=== PATIENT | male | born 1990 | race Caucasian/White ===

== ENCOUNTER 2024-10-07 22:24 | Emergency (ER) | payer MEDICAID, SELFPAY ==
[2024-10-07 22:24] VITALS: BMI 22.8
--- NOTE | 2024-10-07 22:27 | EKG_ITS ---
[facility] Test Date: 2024-10-07 Pat Name: JOVITA GUILLEN Department: Room: - Gender: Male Training Facilitator: : 1990 Requested By: Kenney Armijo Order Number: [id number] Reading MD: Kenney Armijo Measurements Intervals [place] Rate: 90 P: 69 ND: 171 QRS: 54 QRSD: 87 T: 72 QT: 345 QTc: 424 Interpretive Statements SINUS RHYTHM Compared to ECG 06/24/2024 15:44:01 Sinus tachycardia no longer present Atrial abnormality no longer present /store/S0/[id number].pdf
[2024-10-07 22:54] VITALS: BP 135/77; PULSE 90; RESP 18; TEMP 37.2; O2SAT 99
--- NOTE | 2024-10-07 23:06 | XR_ITS ---
Examination: PA chest single view Technique: Upright PA chest single view Exam date and time: 10/07/2024 11:14 PM Indications: Chest pain shortness of breath today. Findings: Normal heart size Lungs are clear. The osseous structures are intact Impression: No active disease
--- NOTE | 2024-10-07 23:08 | PD.EDRME ---
Rapid Medical Screening Exam RME Arrival date/time: 10/07/24 22:24 34M with history of some type of rare cancer (in remission) presents to ED with 2 days of CP and SOB. No obvious URI symptoms, but does have some weakness. Family members have some similar symptoms. Chief Complaint: Chest Pain Time Seen by Provider: 10/08/24 00:38 Vital signs: Vital Signs Temperature 98.9 F 10/07/24 22:54 Pulse Rate 90 10/07/24 22:54 Respiratory Rate 18 10/07/24 22:54 Blood Pressure 135/77 H 10/07/24 22:54 Pulse Oximetry (%) 99 10/07/24 22:54 Oxygen Delivery Method Room Air 10/07/24 22:54
[2024-10-07 23:53] LABS: Basophils % (Auto) 1 % (0-2.5); Eosinophils # (Auto) 0.1 Thou/mm3 (0.0-0.5); Eosinophils % (Auto) 1 % (0-10); Hematocrit 43.2 % (41.0-53.0); Hemoglobin 14.8 g/dL (13.5-16.0); Immature Granulocytes % (Auto) 0 % (0-0); Immature Granulocytes Auto 0.01 Thou/mm3 (0.00-0.00); Lymphocytes # (Auto) 2.7 Thou/mm3 (1.0-4.8); Lymphocytes % (Auto) 37 % (10-50); Mean Corpuscular HGB Conc 34.3 g/dl (31.0-37.0); Mean Corpuscular Hemoglobin 29.9 pg (25.0-35.0); Mean Corpuscular Volume 87 fL (80-100); Monocytes # (Auto) 0.4 Thou/mm3 (0.0-0.8); Monocytes % (Auto) 6 % (0-12); Neutrophils # (Auto) 4.1 Thou/mm3 (1.8-7.7); Neutrophils % (Auto) 56 % (37-80); Nucleated Red Blood Cell % 0 /100 WBC (0); Platelet Count 302 Thou/mm3 (140-440); RDW Standard Deviation 40.3 fL (35.1-43.9); Red Blood Count 4.95 Miln/mm3 (4.50-5.90); White Blood Count 7.4 Thou/mm3 (3.8-10.6)
[2024-10-08 00:20] VITALS: BP 115/84; PULSE 70; RESP 16; O2SAT 99
[2024-10-08 00:22] LABS: Alanine Aminotransferase 30 U/L (10-49); Albumin, Serum 5.6 gm/dL (3.5-5.0); Albumin/Globulin Ratio 2.5 (1.2-2.2); Alkaline Phosphatase 127 U/L (46-116); Anion Gap 10 (7-16); Aspartate Amino Transferase 25 U/L (0-34); BUN/Creatinine Ratio 9 Ratio (12-20); Bilirubin,Total 0.4 mg/dL (0.3-1.2); Blood Urea Nitrogen 13 mg/dL (9-23); Calcium 10.7 mg/dL (8.3-10.6); Calcium (Corrected) 10.7 mg/dL (8.5-10.1); Carbon Dioxide 28.1 mMol/L (20.0-31.0); Chloride 102 mMol/L (98-107); Creatinine (Component) 1.4 mg/dL (0.6-1.3); Estimated Creatinine Clearance 72.5 mL/min (>60); Globulin 2.2 gm/dL (2.3-3.5); Glucose 95 mg/dL (74-106); Osmolality,Calculated 279 (275-295); Potassium 3.9 mMol/L (3.4-5.1); Sodium 140 mMol/L (136-145); Total Protein 7.8 gm/dL (5.7-8.2); Troponin I < 0.020 ng/mL (0.0-0.045); eGFR > 60 See Note
--- NOTE | 2024-10-08 00:35 | EDNOTE_ITS ---
ED Chest Pain RME/HPI General Chief Complaint: Chest Pain Stated Complaint: CHEST PAIN AND SOB SINCE YEST. Time Seen by Provider: 10/08/24 00:38 Arrival date/time: 10/07/24 22:24 Limitations: no limitations RME / HPI RME / HPI narrative: 10/07/24 22:24 34M with history of some type of rare cancer (in remission) presents to ED with 2 days of CP and SOB. No obvious URI symptoms, but does have some weakness. Family members have some similar symptoms. ----- Dr. Rivas's Main ED Evaluation: 34yo male with a history of spinal CA (in remission since 2017) presents to the ED for a chief complaint of chest tightness since yesterday. Patient states his discomfort has been constant up until ~0000 tonight. He states he was feeling clammy and hot yesterday. He notes feeling fatigued and sluggish today and was concerned for having COVID, so he came in for evaluation. He endorses having diarrhea 3 days ago, and right-sided back pain. He denies any decreased appetite, cough, N/V or any other associated symptoms. No known allergies. Patient states he hasn't followed up at the [facility] in [place] since he lost his insuarance. He states his last MRI was in 2022 and was normal. Patient notes he sees a recycling coordinator next month. Related Data Previous Rx's ?Medication ?Instructions ?Recorded acetaminophen 300 mg-codeine 30 mg 1 tab PO Q6H PRN pain #15 tabs 02/16/21 tablet ondansetron 4 mg disintegrating 4 mg PO Q6H PRN nausea and 02/16/21 tablet vomiting #10 tabs tamsulosin 0.4 mg capsule (Flomax) 0.4 mg PO QDAY #7 caps 02/16/21 nirmatrelvir 300 mg (150 mg See Rx Instructions PO .COMPLEX 05/20/24 x2)-ritonavir 100 mg tablet,dose #30 tabs pack (Paxlovid) Allergies Allergy/AdvReac Type Severity Reaction Status Date / Time No Known Allergies Allergy Verified 10/07/24 22:27 Review of Systems Review of Systems Systems Reviewed: All systems reviewed, normal except as documented Past Medical History Past Medical History NEUROLOGIC: Positive Neurological Disorders CARDIAC: Negative Cardiac Disorders or Congestive Heart Failure RESPIRATORY: Negative Chronic Obstructive Pulmonary Disease (COPD) or Asthma GENITOURINARY: Negative Renal Disease ENDOCRINE: Negative Diabetes Mellitus Type 1 or Diabetes Mellitus Type 2 HEMATOLOGIC: Negative Sickle Cell Disease OTHER HISTORY: Positive Cancer (Spine in 2017.) Surgical History SURGICAL: Positive Neurologic Surgery Social History SMOKING STATUS: Never smoker SUBSTANCE USE: marijuana ED Exam General Limitations: Present no limitations General appearance: Present alert and in no apparent distress Head Head exam: Present atraumatic Eye Eye exam: Present normal appearance, PERRL and EOMI ENT ENT exam: Present normal exam, normal oropharynx, mucous membranes moist and other (no trismus) Neck Neck exam: Present normal inspection, full ROM and trachea midline Chest Chest inspection: Present normal inspection and symmetric chest wall rise Respiratory Respiratory exam: Present normal lung sounds bilaterally Cardiovascular Cardiovascular exam: Present regular rate, normal rhythm and normal heart sounds Abdominal Exam Abdominal exam: Present soft and normal bowel sounds Extremities Exam Extremities exam: Present normal inspection and full ROM Back Exam Back exam: Present normal inspection and full ROM Neurological Exam Neurological exam: Present alert, oriented X3 and CN II-XII intact Psychiatric Psychiatric exam: Present normal affect and normal mood Skin Skin exam: Present warm, dry, intact and normal color Course Course Course Narrative: CXR is ordered for determining the etiology of chest pain. 0052: Discussed plan with the patient. Patient is agreeable to get a repeat troponin. Quality Measures none Orders Category Date Time Status Bedside COVID-19 Antigen Test NOW Care 10/07/24 23:06 Completed Bedside Influenza A&B Antigen Test NOW Care 10/07/24 23:07 Completed EKG (ED ONLY) *Do not use* NOW Care 10/07/24 22:27 Completed EKG (ED Only) Stat Exams 10/07/24 22:27 Draft XR chest 1V portable Stat Exams 10/07/24 23:06 Completed CBC Stat Lab 10/07/24 23:17 Completed Comprehensive Metabolic Panel Stat Lab 10/07/24 23:17 Completed Troponin I Stat Lab 10/07/24 23:17 Completed Troponin I Stat Lab 10/08/24 01:18 Completed Vital Signs Vital signs: Vital Signs Temperature 98.9 F 10/07/24 22:54 Pulse Rate 90 10/07/24 22:54 Respiratory Rate 18 10/07/24 22:54 Blood Pressure 135/77 H 10/07/24 22:54 Pulse Oximetry (%) 99 10/07/24 22:54 Oxygen Delivery Method Room Air 10/07/24 22:54 Pulse ox is 99% on room air, which is normal according to my interpretation. Chest Pain Patient data External records reviewed:: [facility] previous records (Per chart review, patient was seen here on 07/17/24 for a left kidney stone.) Clinical information provided by:: patient Social determinants that could affect healthcare access:: none Patient has the following chronic illnesses:: spinal CA (2016), last chemotherapy tx in 2017 How is presenting disease/condition affected by chronic disease/condition?: uneffected by Evaluation data The following diagnostics were reviewed and interpreted by me:: lab results, radiology exam(s) and EKG tracing(s) Lab and/or radiology exams considered but not ordered:: none Interpretation Summary: CBC is normal, Creatinine is slightly elevated at 1.4, Initial Troponin is normal, Repeat Troponin is normal, Bedside COVID and Influenza are negative, according to my interpretation. CXR is negative for any CHF, pleural effusions, pneumothorax, and cardiomegaly, according to my interpretation. EKG done at 2244, NSR, rate of 90, QTc: 424, normal intervals, normal axis, no ST elevations or depression, no STEMI, according to my interpretation. ---- I have personally reviewed the radiology data and agree with the radiologist's interpretation below: [facility] Report Signed Patient: JOVITA GUILLEN Record#: [id number] Birthdate: 1990 Age/Sex: 34 / M Location: [facility] Attending Dr: Ordering Physician: Kenney Armijo PA-C Date of Service: 10/07/24 Procedure(s): XR chest 1V portable Accession Number(s): [id number] cc: Andrea Morris MD; Kenney Armijo PA-C~ Examination: PA chest single view Technique: Upright PA chest single view Exam date and time: 10/07/2024 11:14 PM Indications: Chest pain shortness of breath today. Findings: Normal heart size Lungs are clear. The osseous structures are intact Impression: No active disease Dictated By: Andrea Morris MD Signed By: <Electronically signed by Andrea Morris MD in [place]> 10/07/24 1553 Medications / Prescriptions Medications or Prescriptions considered but not ordered:: none Medication administrations:: see above, if any Consultations Consultation(s) initiated? (list below): No Diagnosis Chest Pain Differential Diagnosis: other (atypical presentation of gallbladder stone, anxiety, PE, CA, GERD) Most likely diagnosis given after review of the tests above:: see below Admission Indicated Admission indicated?: not indicated Explain why admission is indicated or not indicated:: Initial and repeat troponins are normal. Patient is stable to be discharged home. Admission Request Was there a request for admission?: No Disposition Plan Disposition Plan: Discharge Discharge Attestation Discharge Attestation: The patient and all family members were given an opportunity to ask questions and understood the discharge instructions. Discharge instructions specifically effects, indications for sooner follow up or return to the emergency department, and the expected course of current diagnosis. Patient condition: Stable Discharge Plan Plan Patient Disposition: HOME (Self Care) Patient condition on transfer: Stable Prescriptions/Referrals Prescriptions/Med Rec: No Action tamsulosin [Flomax] 0.4 mg capsule 0.4 mg PO QDAY Qty: 7 0RF acetaminophen-codeine 300-30 mg tablet 1 tab PO Q6H PRN (Reason: pain) Qty: 15 0RF ondansetron 4 mg tablet,disintegrating 4 mg PO Q6H PRN (Reason: nausea and vomiting) Qty: 10 0RF Paxlovid 300 mg (150 mg x 2)-100 mg tablets,dose pack See Rx Instructions .ROUTE .COMPLEX Qty: 30 0RF Rx Instructions: take TWO 150 mg tablets of nirmatrelvir with ONE 100 mg tablet of ritonavir twice daily for 5 days Problem List Clinical Impression: Palpitations Patient/Caregiver Discharge Instructions Education Materials: ED Palpitations Additional Instructions: Please follow-up with your recycling coordinator and your primary care as directed. Return to emergency department worsening symptoms, or any concerns. Print Language: Colombian Stand Alone Forms: Jeri Award Info., Patient Portal Info Letter
[2024-10-08 01:47] LABS: Troponin I < 0.020 ng/mL (0.0-0.045)
[2024-10-08 01:56] VITALS: BP 115/79; PULSE 73; RESP 16; TEMP 36.7; O2SAT 99
[2024-10-08 02:22] VITALS: PULSE 93; RESP 20; O2SAT 100
== END 2024-10-08 02:23 | disposition home or self-care (01) ==
LOC: SERX 10-08 02:00
PROVIDERS: Physician Assistant; Emergency Provider Emergency Medicine; PCP Family Medicine
DX: R00.2 Palpitations (principal); R07.9 Chest pain, unspecified
CPT/HCPCS: 36415; 71045; 80053; 84484; 85025; 87400; 87811; 93005; 99283

== ENCOUNTER 2024-10-15 17:53 | Emergency (ER) | payer MEDICAID, SELFPAY ==
[2024-10-15 17:53] VITALS: BMI 22.8
[2024-10-15 18:11] VITALS: BP 136/86; PULSE 88; RESP 19; TEMP 36.9; O2SAT 98
--- NOTE | 2024-10-15 18:21 | XR_ITS ---
Examination: Abdomen sonogram, Limited Date and time of exam: October 15, 20242026 hrs. Indications: Onset right upper abdominal pain today Technique: Real-time harris scale transabdominal sonographic images of the upper abdomen obtained. Findings: 16 mm gallstone Normal gallbladder wall Normal common bile duct Pancreatic head 3.3 cm Liver 11.9 cm fatty infiltration Normal hepatopedal portal venous flow Patent IVC Impression: Cholelithiasis, negative for cholecystitis
--- NOTE | 2024-10-15 18:22 | PD.EDRME ---
Rapid Medical Screening Exam E Arrival date/time: 10/15/24 17:53 34-year-old male past medical history of gallstones with emergency department complaining of right upper quadrant abdominal pain that started yesterday. Chief Complaint: Abdominal Pain Time Seen by Provider: 10/15/24 18:05 Vital signs: Vital Signs Temperature 98.5 F 10/15/24 18:11 Pulse Rate 88 10/15/24 18:11 Respiratory Rate 19 10/15/24 18:11 Blood Pressure 136/86 H 10/15/24 18:11 Pulse Oximetry (%) 98 10/15/24 18:11 Oxygen Delivery Method Room Air 10/15/24 18:11 Vital signs reviewed by provider: Yes
[2024-10-15] MEDS: KETOROLAC INJ 60 MG/2 ML VIAL 30 MG IM (18:29)
[2024-10-15 18:57] LABS: Basophils # (Auto) 0.1 Thou/mm3 (0.0-0.2); Basophils % (Auto) 1 % (0-2.5); Eosinophils # (Auto) 0.1 Thou/mm3 (0.0-0.5); Eosinophils % (Auto) 1 % (0-10); Hematocrit 44.4 % (41.0-53.0); Hemoglobin 15.5 g/dL (13.5-16.0); Immature Granulocytes % (Auto) 0 % (0-0); Immature Granulocytes Auto 0.02 Thou/mm3 (0.00-0.00); Lymphocytes # (Auto) 2.7 Thou/mm3 (1.0-4.8); Lymphocytes % (Auto) 30 % (10-50); Mean Corpuscular HGB Conc 34.9 g/dl (31.0-37.0); Mean Corpuscular Hemoglobin 30.3 pg (25.0-35.0); Mean Corpuscular Volume 87 fL (80-100); Monocytes # (Auto) 0.6 Thou/mm3 (0.0-0.8); Monocytes % (Auto) 6 % (0-12); Neutrophils # (Auto) 5.5 Thou/mm3 (1.8-7.7); Neutrophils % (Auto) 61 % (37-80); Nucleated Red Blood Cell % 0 /100 WBC (0); Platelet Count 300 Thou/mm3 (140-440); Red Blood Count 5.12 Miln/mm3 (4.50-5.90)
[2024-10-15 19:23] LABS: Alanine Aminotransferase 43 U/L (10-49); Albumin, Serum 5.9 gm/dL (3.5-5.0); Albumin/Globulin Ratio 2.5 (1.2-2.2); Alkaline Phosphatase 121 U/L (46-116); Anion Gap 11 (7-16); Aspartate Amino Transferase 27 U/L (0-34); BUN/Creatinine Ratio 14 Ratio (12-20); Bilirubin,Total 0.6 mg/dL (0.3-1.2); Blood Urea Nitrogen 19 mg/dL (9-23); Calcium 11.2 mg/dL (8.3-10.6); Calcium (Corrected) 11.2 mg/dL (8.5-10.1); Carbon Dioxide 27.5 mMol/L (20.0-31.0); Chloride 100 mMol/L (98-107); Creatinine (Component) 1.4 mg/dL (0.6-1.3); Estimated Creatinine Clearance 72.5 mL/min (>60); Globulin 2.4 gm/dL (2.3-3.5); Glucose 98 mg/dL (74-106); Lipase 39 U/L (12-53); Osmolality,Calculated 277 (275-295); Potassium 4.2 mMol/L (3.4-5.1); Sodium 138 mMol/L (136-145); Total Protein 8.3 gm/dL (5.7-8.2); eGFR > 60 See Note
--- NOTE | 2024-10-15 21:20 | EDNOTE_ITS ---
<Statement entered by Shannan Krishna MD - 10/26/24 17:37> As co-signing physician, I was present and available for consult prn. I concur with the plan and care as documented by the midlevel provider. ED Abdominal Pain RME/HPI General Chief Complaint: Abdominal Pain Stated complaint: RIGHT SIDE ABD PAIN TODAY, HX GALLSTONES Time seen by provider: 10/15/24 18:05 Arrival date/time: 10/15/24 17:53 34-year-old male past medical history of gallstones with emergency department complaining of right upper quadrant abdominal pain that started yesterday. Patient denies any fever, chills, nausea vomiting, diarrhea, or any other associated symptom. Source: patient Mode of arrival: ambulatory Limitations: no limitations RME / HPI RME / HPI narrative: 10/15/24 17:53 34-year-old male past medical history of gallstones with emergency department complaining of right upper quadrant abdominal pain that started yesterday. Related Data Previous Rx's ?Medication ?Instructions ?Recorded acetaminophen 300 mg-codeine 30 mg 1 tab PO Q6H PRN pain #15 tabs 02/16/21 tablet ondansetron 4 mg disintegrating 4 mg PO Q6H PRN nausea and 02/16/21 tablet vomiting #10 tabs tamsulosin 0.4 mg capsule (Flomax) 0.4 mg PO QDAY #7 caps 02/16/21 nirmatrelvir 300 mg (150 mg See Rx Instructions PO .COMPLEX 05/20/24 x2)-ritonavir 100 mg tablet,dose #30 tabs pack (Paxlovid) ibuprofen 600 mg tablet 600 mg PO Q8H PRN pain #20 tabs 10/15/24 Allergies Allergy/AdvReac Type Severity Reaction Status Date / Time No Known Allergies Allergy Verified 10/15/24 17:55 Review of Systems Review of Systems Systems Reviewed: All systems reviewed, normal except as documented Constitutional Constitutional: Reports system reviewed and no additional complaints, except as documented, Denies body ache(s), Denies chills and Denies fever(s) Eyes Eyes: Reports system reviewed and no additional complaints, except as documented and Denies change in vision ENT Ears, Nose, Mouth, and Throat: Reports system reviewed and no additional co mplaints, except as documented, Denies disequilibrium, Denies dizziness, Denies sore throat and Denies vertigo Cardiovascular Cardiovascular: Reports system reviewed and no additional complaints, except as documented, Denies chest pain and Denies dyspnea Respiratory Respiratory: Reports system reviewed and no additional complaints, except as documented, Denies chest congestion, Denies cough and Denies dyspnea Gastrointestinal Gastrointestinal: Reports system reviewed and no additional complaints, except as documented, Reports abdominal pain, Denies nausea and Denies vomiting Musculoskeletal Musculoskeletal: Reports system reviewed and no additional complaints, except as documented, Denies abnormal gait and Denies arthralgias Integumentary/Breasts Skin/Breast: Reports system reviewed and no additional complaints, except as documented, Denies erythema, Denies rash and Denies wounds Neurologic Neurologic: Reports system reviewed and no additional complaints, except as documented, Denies abnormal gait, Denies disequilibrium, Denies dizziness and Denies vertigo Past Medical History Past Medical History NEUROLOGIC: Positive Neurological Disorders CARDIAC: Negative Cardiac Disorders or Congestive Heart Failure RESPIRATORY: Negative Chronic Obstructive Pulmonary Disease (COPD) or Asthma GENITOURINARY: Negative Renal Disease ENDOCRINE: Negative Diabetes Mellitus Type 1 or Diabetes Mellitus Type 2 HEMATOLOGIC: Negative Sickle Cell Disease OTHER HISTORY: Positive Cancer (Spine in 2017.) Surgical History SURGICAL: Positive Neurologic Surgery Social History SMOKING STATUS: Never smoker SUBSTANCE USE: marijuana ED Exam General Limitations: Present no limitations General appearance: Present alert and in no apparent distress Head Head exam: Present atraumatic Eye Eye exam: Present normal appearance, PERRL and EOMI ENT ENT exam: Present normal exam, normal oropharynx and mucous membranes moist Neck Neck exam: Present normal inspection, full ROM and trachea midline Chest Chest inspection: Present normal inspection and symmetric chest wall rise Respiratory Respiratory exam: Present normal lung sounds bilaterally Cardiovascular Cardiovascular exam: Present regular rate, normal rhythm and normal heart sounds Abdominal Exam Abdominal exam: Present soft and normal bowel sounds; Absent tenderness, guarding, rebound or Moreno's sign Extremities Exam Extremities exam: Present normal inspection and full ROM Back Exam Back exam: Present normal inspection and full ROM Neurological Exam Neurological exam: Present alert, oriented X3 and CN II-XII intact Psychiatric Psychiatric exam: Present normal affect and normal mood Skin Skin exam: Present warm, dry, intact and normal color Course Quality Measures none Orders Category Date Time Status US gall bladder Stat Exams 10/15/24 18:21 Completed CBC Stat Lab 10/15/24 18:44 Completed CMP [Comprehensive Metabolic Panel] Stat Lab 10/15/24 18:44 Completed Lipase Stat Lab 10/15/24 18:44 Completed Ketorolac Inj [Toradol Inj] Med 10/15/24 18:21 Discontinued 30 mg IM X1 ONE Vital Signs Vital signs: Vital Signs Temperature 98.5 F 10/15/24 18:11 Pulse Rate 88 10/15/24 18:11 Respiratory Rate 19 10/15/24 18:11 Blood Pressure 136/86 H 10/15/24 18:11 Pulse Oximetry (%) 98 10/15/24 18:11 Oxygen Delivery Method Room Air 10/15/24 18:11 98% room air within normal limits Abdominal Pain MDM MDM Narrative MDM Narrative:: 34-year-old male past medical history of gallstones with emergency department complaining of right upper quadrant abdominal pain that started yesterday. Patient denies any fever, chills, nausea vomiting, diarrhea, or any other associated symptom. CBC was unremarkable for any leukocytosis. CMP was unremarkable with normal AST, ALT, and total bili. Ultrasound gallbladder findings gallstones but negative for cholecystitis. Patient appears nontoxic and is hemodynamically stable. Patient discharged ducted to follow-up with primary care provider and request referral to general surgeon if symptoms persist. Instructed to return to emergency department for any worsening symptoms or as needed. Patient data External records reviewed:: [facility] previous records Clinical information provided by:: patient Social determinants that could affect healthcare access:: none Patient has the following chronic illnesses:: See chart How is presenting disease/condition affected by chronic disease/condition?: uneffected by Evaluation data The following diagnostics were reviewed and interpreted by me:: lab results and radiology exam(s) Lab and/or radiology exams considered but not ordered:: Ordered Interpretation Summary: Interpreted by me Medications / Prescriptions Medications or Prescriptions considered but not ordered:: Ordered Medication administrations:: Medication Administration History Discontinued Medications Ketorolac Tromethamine (Ketorolac Inj 60 Mg/2 Ml Vial) 30 mg IM X1 ONE Stop: 10/15/24 18:22 Last Admin: 10/15/24 18:29 Dose: 30 mg Documented By: Given Consultations Consultation(s) initiated? (list below): No Diagnosis Differential diagnosis abdominal pain: abdominal pain, acute appendicitis, calculus of kidney, constipation, diverticulitis, endometriosis, pancreatitis and small bowel obstruction Most likely diagnosis given after review of the tests above:: Gallstones Admission Indicated Admission indicated?: not indicated Admission Request Was there a request for admission?: No Disposition Plan Disposition Plan: Discharge Discharge Attestation Discharge Attestation: The patient and all family members were given an opportunity to ask questions and understood the discharge instructions. Discharge instructions specifically effects, indications for sooner follow up or return to the emergency department, and the expected course of current diagnosis. Patient condition: Stable Discharge Plan Plan Patient Disposition: HOME (Self Care) Disposition Comment: Stable Prescriptions/Referrals Prescriptions/Med Rec: New ibuprofen 600 mg tablet 600 mg PO Q8H PRN (Reason: pain) Qty: 20 0RF No Action tamsulosin [Flomax] 0.4 mg capsule 0.4 mg PO QDAY Qty: 7 0RF acetaminophen-codeine 300-30 mg tablet 1 tab PO Q6H PRN (Reason: pain) Qty: 15 0RF ondansetron 4 mg tablet,disintegrating 4 mg PO Q6H PRN (Reason: nausea and vomiting) Qty: 10 0RF Paxlovid 300 mg (150 mg x 2)-100 mg tablets,dose pack See Rx Instructions .ROUTE .COMPLEX Qty: 30 0RF Rx Instructions: take TWO 150 mg tablets of nirmatrelvir with ONE 100 mg tablet of ritonavir twice daily for 5 days Referrals: Edgar Farmer MD [Primary Care Provider] - In 1 week Problem List Clinical Impression: Gallstones Patient/Caregiver Discharge Instructions Discharge Activity: activity as tolerated Education Materials: ED Gallstones with Biliary Colic Additional Instructions: Take ibuprofen as needed for pain. Follow-up with primary care provider and request referral to general surgeon if symptoms persist. Return to emergency department for any worsening symptoms or as needed. Print Language: [place] Citizen Stand Alone Forms: Jeri Award Info., Patient Portal Info Letter PA/TSEFFANY Supervising Physician PA/STEFFANY Supervising Physician: Dr. Krishna
== END 2024-10-15 21:45 | disposition home or self-care (01) ==
PROVIDERS: Emergency Provider Emergency Medicine; PCP Family Medicine
DX: K80.20 Calculus of gallbladder without cholecystitis without obstruction (principal)
CPT/HCPCS: 36415; 76705; 80053; 81001; 83690; 85025; 96372; 99284; J1885

== ENCOUNTER 2024-10-19 10:17 | Emergency (ER) | payer MEDICAID, SELFPAY ==
[2024-10-19 10:41] VITALS: BP 137/90; PULSE 120; RESP 18; TEMP 36.9; O2SAT 99; BMI 22.1
--- NOTE | 2024-10-19 10:52 | XR_ITS ---
Examination: Abdomen sonogram, Limited Date and time of exam: October 19, 2024 1131 hours INDICATIONS: Epigastric pain right upper abdominal pain beginning 4 days ago Technique: Real-time harris scale transabdominal sonographic images of the upper abdomen obtained. Findings: 21 mm gallstone Gallbladder wall 0.3 cm no edema Common bile duct 0.2 cm Pancreatic head 2.6 cm Liver 12.3 cm fatty infiltration with areas of focal fatty sparing Normal hepatopedal portal venous flow Patent IVC IMPRESSION: Cholelithiasis, negative for cholecystitis
--- NOTE | 2024-10-19 10:54 | PD.EDRME ---
Rapid Medical Screening Exam RME Arrival date/time: 10/19/24 10:17 34-year-old male with recent diagnosis of gallstones presents to the emergency department complains of abdominal pain which has worsened Chief Complaint: Abdominal Pain Time Seen by Provider: 10/19/24 10:39 Vital signs: Vital Signs Temperature 98.4 F 10/19/24 10:41 Pulse Rate 120 H 10/19/24 10:41 Respiratory Rate 18 10/19/24 10:41 Blood Pressure 137/90 H 10/19/24 10:41 Pulse Oximetry (%) 99 10/19/24 10:41 Oxygen Delivery Method Room Air 10/19/24 10:41
[2024-10-19 11:13] LABS: Basophils # (Auto) 0.1 Thou/mm3 (0.0-0.2); Basophils % (Auto) 1 % (0-2.5); Eosinophils # (Auto) 0.1 Thou/mm3 (0.0-0.5); Eosinophils % (Auto) 1 % (0-10); Hematocrit 41.3 % (41.0-53.0); Hemoglobin 14.5 g/dL (13.5-16.0); Immature Granulocytes % (Auto) 0 % (0-0); Immature Granulocytes Auto 0.02 Thou/mm3 (0.00-0.00); Lymphocytes # (Auto) 1.7 Thou/mm3 (1.0-4.8); Lymphocytes % (Auto) 24 % (10-50); Mean Corpuscular HGB Conc 35.1 g/dl (31.0-37.0); Mean Corpuscular Hemoglobin 30.1 pg (25.0-35.0); Mean Corpuscular Volume 86 fL (80-100); Monocytes # (Auto) 0.4 Thou/mm3 (0.0-0.8); Monocytes % (Auto) 5 % (0-12); Neutrophils # (Auto) 4.8 Thou/mm3 (1.8-7.7); Neutrophils % (Auto) 69 % (37-80); Nucleated Red Blood Cell % 0 /100 WBC (0); Platelet Count 257 Thou/mm3 (140-440); RDW Standard Deviation 39.8 fL (35.1-43.9); Red Blood Count 4.81 Miln/mm3 (4.50-5.90); White Blood Count 6.9 Thou/mm3 (3.8-10.6)
[2024-10-19 11:31] LABS: Alanine Aminotransferase 24 U/L (10-49); Albumin, Serum 5.4 gm/dL (3.5-5.0); Albumin/Globulin Ratio 2.3 (1.2-2.2); Alkaline Phosphatase 98 U/L (46-116); Anion Gap 8 (7-16); Aspartate Amino Transferase 14 U/L (0-34); BUN/Creatinine Ratio 10 Ratio (12-20); Bilirubin,Total 0.6 mg/dL (0.3-1.2); Blood Urea Nitrogen 12 mg/dL (9-23); Calcium 10.6 mg/dL (8.3-10.6); Calcium (Corrected) 10.6 mg/dL (8.5-10.1); Carbon Dioxide 26.7 mMol/L (20.0-31.0); Chloride 102 mMol/L (98-107); Creatinine (Component) 1.2 mg/dL (0.6-1.3); Estimated Creatinine Clearance 81.9 mL/min (>60); Globulin 2.3 gm/dL (2.3-3.5); Glucose 106 mg/dL (74-106); Lipase 38 U/L (12-53); Osmolality,Calculated 273 (275-295); Sodium 137 mMol/L (136-145); Total Protein 7.7 gm/dL (5.7-8.2); eGFR > 60 See Note
[2024-10-19 12:11] LABS: Collection Type, Urine Clean Catch; Squamous Epithelial Cell,Urine 0 /hpf (0-5)
[2024-10-19 12:15] LABS: Bilirubin,Urine Negative (Negative); Blood,Urine Negative (Negative); Clarity,Urine Clear (Clear/Hazy); Color,Urine Lt-Yellow (Lt Yel-Yel); Culture Indicated,Urine Not Indicated; Glucose, Urine Negative (Negative); Ketones,Urine 1+ (Negative); Leukocyte Esterase,Urine Negative (Negative); Nitrite,Urine Negative (Negative); PH,Urine 6.5 (5.0-7.0); Protein,Urine Trace (Neg - Trace); RBC,Urine 1 /hpf (0-3); Specific Gravity,Urine 1.018 (1.001-1.035); Urobilinogen,Urine Negative mg/dL (0.0-1.0); WBC,Urine 3 /hpf (0-5)
[2024-10-19 12:32] LABS: Amphetamine/Methamp Scrn,U Negative (Negative); Barbiturate Screen,Urine Negative (Negative); Benzodiazepines Screen,Urine Negative (Negative); Benzoylecgonine Screen, Ur Negative (Negative); Fentanyl Screen,Urine Negative (Negative); Opiate Screen,Urine Negative (Negative); THC Screen,Urine Positive (Negative)
[2024-10-19 14:07] VITALS: BP 127/85; PULSE 97; RESP 17; TEMP 37; O2SAT 97
--- NOTE | 2024-10-19 14:51 | PD.EDADULT ---
ED General RME/HPI General Chief complaint: Abdominal Pain Stated complaint: SEEN SAT, GALL BLADDER PAIN Time Seen by Provider: 10/19/24 10:39 Arrival date/time: 10/19/24 10:17 CC: Right upper quadrant abdominal pain. HPI ongoing for the past week. Was seen yesterday by Dr. Vu for the same complaint. Patient has a history of brain cancer with chemotherapy that is currently in remission. Patient states this morning he was nauseated with right upper quadrant abdominal pain which has since resolved. Patient denies fever chills shortness of breath or difficulty breathing. RME / HPI RME / HPI narrative: 10/19/24 10:17 34-year-old male with recent diagnosis of gallstones presents to the emergency department complains of abdominal pain which has worsened Related Data Previous Rx's ?Medication ?Instructions ?Recorded acetaminophen 300 mg-codeine 30 mg 1 tab PO Q6H PRN pain #15 tabs 02/16/21 tablet ondansetron 4 mg disintegrating 4 mg PO Q6H PRN nausea and 02/16/21 tablet vomiting #10 tabs tamsulosin 0.4 mg capsule (Flomax) 0.4 mg PO QDAY #7 caps 02/16/21 nirmatrelvir 300 mg (150 mg See Rx Instructions PO .COMPLEX 05/20/24 x2)-ritonavir 100 mg tablet,dose #30 tabs pack (Paxlovid) ibuprofen 600 mg tablet 600 mg PO Q8H PRN pain #20 tabs 10/15/24 meloxicam 7.5 mg tablet 7.5 mg PO QDAY #10 tabs 10/19/24 Allergies Allergy/AdvReac Type Severity Reaction Status Date / Time No Known Allergies Allergy Verified 10/15/24 17:55 Review of Systems Review of Systems Narrative Review of Systems: GEN: No fever, no chills, no weight loss EYES: No discharge, no visual changes, no pain HEENT: No ear pain, no congestion, no sore throat PULM: No shortness of breath, no cough, no congestion CV: No chest pain, no dyspnea on exertion, no palpitations GI: No nausea, no vomiting, no diarrhea, + pain, no constipation : No frequency, no urgency, no dysuria MUSC/SKEL: No joint pain, no back pain SKIN: No rash PSYCH: No hallucinations, no depression HEME/LYMPH: No easy bleeding or bruising tendencies NEURO: No weakness, no headache Past Medical History Past Medical History NEUROLOGIC: Positive Neurological Disorders CARDIAC: Negative Cardiac Disorders or Congestive Heart Failure RESPIRATORY: Negative Chronic Obstructive Pulmonary Disease (COPD) or Asthma GENITOURINARY: Negative Renal Disease ENDOCRINE: Negative Diabetes Mellitus Type 1 or Diabetes Mellitus Type 2 HEMATOLOGIC: Negative Sickle Cell Disease OTHER HISTORY: Positive Cancer (Spine in 2017.) Surgical History SURGICAL: Positive Neurologic Surgery Social History SMOKING STATUS: Never smoker SUBSTANCE USE: marijuana ED Exam Narrative Physical exam: [General: Thin, but not emaciated, not in any acute distress Head normocephalic HEENT: Within acceptable limits Neck is supple nontender Chest equal chest rise nontender to palpation Respiratory: Clear to auscultation no wheezes crackles or rubs CV: Rate rhythm is regular no murmurs rubs or clicks Abdomen mild right upper quadrant tenderness no reflexive guarding rebound tenderness. No right lower left upper or left lower tenderness to palpation. Back: No CVA tenderness no spinous process tenderness from cervical spine thoracic and lumbar spine Skin: Pale, intact no petechiae rash induration ulceration or crepitus Extremities: Moving all extremity against resistance cap refill less than 2 seconds neurosensory intact Neuro: Awake alert oriented x3 Glascow coma 15 no focal deficits] Course Quality Measures VTE prophylaxis Orders Category Date Time Status US gall bladder Stat Exams 10/19/24 10:52 Completed CBC Stat Lab 10/19/24 11:05 Completed Comprehensive Metabolic Panel Stat Lab 10/19/24 11:05 Completed Drug Screen,Urine Stat Lab 10/19/24 12:00 Completed Lipase Stat Lab 10/19/24 11:05 Completed UA, C/S IF [Urinalysis, C/S if Indicated] Stat Lab 10/19/24 12:00 Completed oxyCODONE/APAP 5/325 [Percocet 5/325] Med 10/19/24 14:56 Discontinued 1 tab PO X1 ONE Vital Signs Vital signs: Vital Signs Temperature 98.4 F 10/19/24 10:41 Pulse Rate 120 H 10/19/24 10:41 Respiratory Rate 18 10/19/24 10:41 Blood Pressure 137/90 H 10/19/24 10:41 Pulse Oximetry (%) 99 10/19/24 10:41 Oxygen Delivery Method Room Air 10/19/24 10:[address] [facility] Patient data External records reviewed:: [facility] previous records Clinical information provided by:: patient Social determinants that could affect healthcare access:: none Patient has the following chronic illnesses:: Brain cancer in remission. Recently diagnosed with gallstone How is presenting disease/condition affected by chronic disease/condition?: exacerbated by Evaluation data The following diagnostics were reviewed and interpreted by me:: lab results and radiology exam(s) Lab and/or radiology exams considered but not ordered:: CBC shows no acute leukocytosis anemia thrombocytopenia CMP shows no acute electrolyte imbalances renal impairment transaminitis or T. bili elevation Urine is negative lipase is normal Ultrasound shows a 12 mm stone in the gallbladder no gallbladder wall thickening, no CBD dilatation. This interpreted by me and read by radiology. Interpretation Summary: Cholelithiasis but no cholecystitis. Medications Medications considered but not ordered:: None Medication administrations:: Medication Administration History Discontinued Medications Oxycodone/Acetaminophen (Oxycodone/Apap 5/325 Tablet) 1 tab PO X1 ONE Stop: 10/19/24 14:57 Last Admin: 10/19/24 15:52 Dose: 1 tab Documented By: ARF None Consultations Consultation(s) initiated? (list below): Yes Consultation #1 (Physician, Specialty, Details): Horace Time: 14:55 Diagnosis Differential Diagnosis ED Complaint MDM: Cholelithiasis cholecystitis pancreatitis Most likely diagnosis given after review of the tests above:: Cholelithiasis Admission Indicated Admission indicated?: not indicated Explain why admission is indicated or not indicated:: Stable for outpatient follow-up Admission Request Was there a request for admission?: No Disposition Plan Disposition Plan: Discharge Discharge Attestation Discharge Attestation: The patient and all family members were given an opportunity to ask questions and understood the discharge instructions. Discharge instructions specifically effects, indications for sooner follow up or return to the emergency department, and the expected course of current diagnosis. Patient condition: Stable Medical Decision Making Differential Diagnosis Differential Diagnosis: Cholelithiasis cholecystitis pancreatitis Lab Data 10/19/24 11:05 10/19/24 11:05 Labs: Lab Results 10/19/24 10/19/24 Range/Units 11:05 12:00 WBC 6.9 (3.8-10.6) Thou/mm3 RBC 4.81 (4.50-5.90) Miln/mm3 Hgb 14.5 (13.5-16.0) g/dL Hct 41.3 (41.0-53.0) % MCV 86 (80-100) fL MCH 30.1 (25.0-35.0) pg MCHC 35.1 (31.0-37.0) g/dl RDW Std Deviation 39.8 (35.1-43.9) fL Plt Count 257 D (140-440) Thou/mm3 Neut % (Auto) 69 (37-80) % Lymph % (Auto) 24 (10-50) % Eddy % (Auto) 5 (0-12) % Eos % (Auto) 1 (0-10) % Baso % (Auto) 1 (0-2.5) % Neut # (Auto) 4.8 (1.8-7.7) Thou/mm3 Lymph # (Auto) 1.7 (1.0-4.8) Thou/mm3 Eddy # (Auto) 0.4 (0.0-0.8) Thou/mm3 Eos # (Auto) 0.1 (0.0-0.5) Thou/mm3 Baso # (Auto) 0.1 (0.0-0.2) Thou/mm3 Immature Gran # (Auto) 0.02 H (0.00-0.00) Thou/mm3 Absolute Nucleated RBC 0.00 (0.00-0.00) Thou/mm3 Immature Gran % 0 (0-0) % Nucleated RBC % 0 (0) /100 WBC Sodium 137 (136-145) mMol/L Potassium 4.0 (3.4-5.1) mMol/L Chloride 102 (98-107) mMol/L Carbon Dioxide 26.7 (20.0-31.0) mMol/L Anion Gap 8 (7-16) BUN 12 (9-23) mg/dL Creatinine 1.2 (0.6-1.3) mg/dL Estim Creat Clear Calc 81.9 (>60) mL/min eGFR > 60 (60 - ) See Note BUN/Creatinine Ratio 10 L (12-20) Ratio Glucose 106 (74-106) mg/dL Calculated Osmolality 273 L (275-295) Calcium 10.6 (8.3-10.6) mg/dL Corrected Calcium 10.6 H (8.5-10.1) mg/dL Total Bilirubin 0.6 (0.3-1.2) mg/dL AST 14 (0-34) U/L ALT 24 (10-49) U/L Alkaline Phosphatase 98 (46-116) U/L Total Protein 7.7 (5.7-8.2) gm/dL Albumin 5.4 H (3.5-5.0) gm/dL Globulin 2.3 (2.3-3.5) gm/dL Albumin/Globulin Ratio 2.3 H (1.2-2.2) Lipase 38 (12-53) U/L Ur Collection Type Clean Catch Urine Color Lt-Yellow (Lt Yel-Yel) Urine Clarity Clear (Clear/Hazy) Urine pH 6.5 (5.0-7.0) Ur Specific [place] 1.018 (1.001-1.035) Urine Protein Trace (Neg - Trace) Urine Glucose (UA) Negative (Negative) Urine Ketones 1+ A (Negative) Urine Blood Negative (Negative) Urine Nitrite Negative (Negative) Urine Bilirubin Negative (Negative) Urine Urobilinogen (Auto) Negative (0.0-1.0) mg/dL Ur Leukocyte Esterase Negative (Negative) Urine RBC 1 (0-3) /hpf Urine WBC 3 (0-5) /hpf Ur Squamous Epith Cells 0 (0-5) /hpf Urine Bacteria None (None) Ur Culture Indicated? Not Indicated Urine Opiates Screen Negative (Negative) Urine Fentanyl Screen Negative (Negative) Ur Barbiturates Screen Negative (Negative) U Amphetamin/Meth Scrn Negative (Negative) U Benzodiazepines Scrn Negative (Negative) U Cocaine Metab Screen Negative (Negative) U Marijuana (THC) Screen Positive A (Negative) Discharge Plan Plan Patient Disposition: HOME (Self Care) Patient condition on transfer: Stable Prescriptions/Referrals Prescriptions/Med Rec: New meloxicam 7.5 mg tablet 7.5 mg PO QDAY Qty: 10 0RF No Action tamsulosin [Flomax] 0.4 mg capsule 0.4 mg PO QDAY Qty: 7 0RF acetaminophen-codeine 300-30 mg tablet 1 tab PO Q6H PRN (Reason: pain) Qty: 15 0RF ondansetron 4 mg tablet,disintegrating 4 mg PO Q6H PRN (Reason: nausea and vomiting) Qty: 10 0RF Paxlovid 300 mg (150 mg x 2)-100 mg tablets,dose pack See Rx Instructions .ROUTE .COMPLEX Qty: 30 0RF Rx Instructions: take TWO 150 mg tablets of nirmatrelvir with ONE 100 mg tablet of ritonavir twice daily for 5 days ibuprofen 600 mg tablet 600 mg PO Q8H PRN (Reason: pain) Qty: 20 0RF Referrals: Edgard Michael PA-C [Primary Care Provider] - In 1 week Problem List Clinical Impression: Gallstones Patient/Caregiver Discharge Instructions Education Materials: Treating Gallstones Additional Instructions: Follow-up with Dr. Vu, take the medication as prescribed. If there is worsening of symptoms return to the emergency room for reevaluation. Print Language: Occitan Stand Alone Forms: Jeri Award Info., Work/School Release, Patient Portal Info Letter TOM/STEFFANY Supervising Physician TOM/STEFFANY Supervising Physician: Ever Medina ENP
[2024-10-19] MEDS: oxyCODONE/APAP 5/325 TABLET 1 TAB PO (15:52)
== END 2024-10-19 15:05 | disposition home or self-care (01) ==
PROVIDERS: Nurse Practitioner Primary Care; Emergency Provider Emergency Medicine; PCP Physician Assistant
DX: K80.20 Calculus of gallbladder without cholecystitis without obstruction (principal)
CPT/HCPCS: 36415; 76705; 80053; 80307; 81001; 83690; 85025; 99284; A9270

== ENCOUNTER 2024-11-18 06:30 | Day surgery (SDC) | payer MEDICAID, SELFPAY ==
[2024-11-16 09:53] VITALS: BMI 22.7
[2024-11-16 12:37] LABS: Basophils # (Auto) 0.1 Thou/mm3 (0.0-0.2); Basophils % (Auto) 1 % (0-2.5); Eosinophils # (Auto) 0.1 Thou/mm3 (0.0-0.5); Eosinophils % (Auto) 2 % (0-10); Hematocrit 40.3 % (41.0-53.0); Hemoglobin 13.9 g/dL (13.5-16.0); Immature Granulocytes % (Auto) 0 % (0-0); Immature Granulocytes Auto 0.02 Thou/mm3 (0.00-0.00); Lymphocytes # (Auto) 2.2 Thou/mm3 (1.0-4.8); Lymphocytes % (Auto) 31 % (10-50); Mean Corpuscular HGB Conc 34.5 g/dl (31.0-37.0); Mean Corpuscular Hemoglobin 30.4 pg (25.0-35.0); Mean Corpuscular Volume 88 fL (80-100); Monocytes # (Auto) 0.4 Thou/mm3 (0.0-0.8); Monocytes % (Auto) 6 % (0-12); Neutrophils # (Auto) 4.2 Thou/mm3 (1.8-7.7); Neutrophils % (Auto) 60 % (37-80); Nucleated Red Blood Cell % 0 /100 WBC (0); Platelet Count 242 Thou/mm3 (140-440); RDW Standard Deviation 41.9 fL (35.1-43.9); Red Blood Count 4.57 Miln/mm3 (4.50-5.90)
[2024-11-16 12:47] LABS: Partial Thromboplastin Time 26.2 Seconds (22.0-36.0); Prothrombin Time 10.5 Seconds (9.0-12.2)
[2024-11-16 12:50] LABS: Alanine Aminotransferase 32 U/L (10-49); Albumin, Serum 5.6 gm/dL (3.5-5.0); Albumin/Globulin Ratio 2.5 (1.2-2.2); Alkaline Phosphatase 110 U/L (46-116); Anion Gap 9 (7-16); Aspartate Amino Transferase 22 U/L (0-34); BUN/Creatinine Ratio 17 Ratio (12-20); Bilirubin,Total 0.5 mg/dL (0.3-1.2); Blood Urea Nitrogen 19 mg/dL (9-23); Calcium 10.8 mg/dL (8.3-10.6); Calcium (Corrected) 10.8 mg/dL (8.5-10.1); Carbon Dioxide 28.7 mMol/L (20.0-31.0); Chloride 102 mMol/L (98-107); Creatinine (Component) 1.1 mg/dL (0.6-1.3); Estimated Creatinine Clearance 91.8 mL/min (>60); Globulin 2.2 gm/dL (2.3-3.5); Glucose 96 mg/dL (74-106); Osmolality,Calculated 281 (275-295); Potassium 4.6 mMol/L (3.4-5.1); Sodium 140 mMol/L (136-145); Total Protein 7.8 gm/dL (5.7-8.2); eGFR > 60 See Note
[2024-11-18] VITALS (7 sets, daily range): BP systolic 117–131; BP diastolic 54–80; PULSE 52–79; RESP 12–16; TEMP 36.2–36.5; O2SAT 100; BMI 21.9
[2024-11-18] MEDS: RINGERS LACTATED 1000 ML 1,000 ML 20 ML IV (07:15)
--- NOTE | 2024-11-18 09:41 | ESOP_ITS ---
Date of Procedure 11/18/24 Pre Op Diagnosis Symptomatic cholelithiasis Post Op Diagnosis Same Procedure Laparoscopic cholecystectomy Findings Patient was found to have single gallstone with no inflammation of the gallbladder Procedure Description After endotracheal anesthesia was given the patient was placed in supine position and the abdomen was prepped with chloroprep solution and draped in a sterile manner. After time out was performed I injected a few cc of of half percent Marcaine with epinephrine below the umbilicus and I made an incision for about 3 cm in length. The fascia was cleaned and Veress needle was inserted to create a pneumoperitoneum up to 15 mmHg. Then introduced a 12 mm trocar and a 10 mm camera through the fascia and I inspected the intra-abdominal organs as well as the gallbladder and the liver. Another 5 mm trocar was inserted in the epigastric region under direct vision after injecting some local anesthesia. At this time the patient was kept in reverse Trendelenburg position with the left lateral tilt. The third 5 mm trocar was inserted over the mid axillary line under direct vision and a Ayo and Prasanna grasper was used to hold the fundus of the gallbladder. The retraction was carried out by the central supply assistant moving the fundus of the gallbladder towards the right shoulder of the patient to create enough traction. I placed a another 5 mm trocar in the midaxillary line just lateral to the rectus muscle under direct vision. I used a fenestrated grasper to retract the neck of the gallbladder laterally towards the patient's right hip. The Calot's triangle was exposed and I achieved the critical view of safety as follows: I dissected out the fatty tissue from the hepatocystic triangle and cleared this area. I also dissected inferior and posterior to the gallbladder to identify the cystic duct and the gallbladder wall. Then superiorly I dissected along the cystic plate up to lower one third third of the gallbladder to lift the gallbladder from the liver. At this time I confirmed that only 2 structures entering the gallbladder were cystic artery and the cystic duct. The common duct was seen distally but no dissection was carried out around the duct. I did not see any need for operative cholangiogram in this patient. The cystic duct was clipped doubly and then divided and the cystic artery was coagulated with harmonic rafaela.. Then the gallbladder was removed from the liver bed using Harmonic rafaela to control the small blood vessels as the dissection proceeded. I ruptured the gallbladder during the dissection and patient received 1 g of Ancef at this time. Then the gallbladder was from the liver bed completely and delivered through the umbilical port using an Endopouch. The liver bed was coagulated with cautery to obtain satisfactory hemostasis. The trocars were pulled out from the abdominal cavity and the fascia at the umbilical incision was closed with interrupted 0 Ethibond. Subcutaneous tissues was closed with 3-0 chromic and injected a few cc of half percent Marcaine with epinephrine and the skin was closed with interrupted 4-0 Monocryl subcuticular stitches at all the trocar sites. Dressing was applied with 2 x 2 and Tegaderm. Patient tolerated the procedure well and returned to recovery room in stable condition. Anesthesia GETA Pathology / specimen Other (Gallbladder and the stones) IVF Infused 600 Estimated Blood Loss 20 Surgeon Ann Frost MD Surgical Staff Operation Date: 11/18/24 08:30 Case Staff Anesthesiologist: Abel De Guzman RN First Assistant: Valery Desai
--- NOTE | 2024-11-18 09:45 | SUR.PHASEI ---
pt received from OR in recovery bay 5. pt obtunded, breathing unlabored on oxymask 8l, oral airway in place. v/s stable. pt dressing to abd x4 cdi. report received from Ritu THACKER and Kirk LY.
[2024-11-18] MEDS: fentaNYL CIT INJ 50 mCg/ML AMP 2ML 25 MCG IV (10:08)
[2024-11-18] MEDS: ACETAMINOPHEN IVPB 1,000 MG/100 ML VIAL 250 MG IV (10:11)
--- NOTE | 2024-11-18 10:14 | SUR.PHASEI ---
pt able to tolerate oral fluids without difficulty swallowing or nausea/vomiting.
[2024-11-18] MEDS: MORPHINE SULF INJ 10 MG/ML VIAL 3 MG IV (10:22)
--- NOTE | 2024-11-18 10:46 | SUR.PHASEII ---
pt awake and alert, breathing unlabored on room air. v/s stable. pt dressing to abd x4 cdi. pt able to ambulate to wheelchair with steady gait. d/c instructions given with Nakia, all questions answered. pt d/c via wheelchair with all belongings.
== END 2024-11-18 10:46 | disposition home or self-care (01) ==
PROVIDERS: PCP Physician Assistant; Referring Provider Surgery; Visit Provider Surgery
PROC: 0FT44ZZ Resection of Gallbladder, Percutaneous Endoscopic Approach (ICD-10-PCS; CPT 47562; principal; 2024-11-18 08:30)
DX: K80.10 Calculus of gallbladder with chronic cholecystitis without obstruction (principal)
CPT/HCPCS: 47562; 36415; 80053; 85025; 85610; 85730; A4217; A4649; J0131; J0690; J1100; J2250; J2270; J2371; J2405; J2704; J3010; J3490; J7120

== ENCOUNTER → 2025-03-08 | Outpatient (CLI) | payer MEDICAID, SELFPAY ==
--- NOTE | 2025-03-08 08:42 | XR_ITS ---
Examination: Abdomen AP single view Technique: AP portable supine abdomen, single view Exam date and time: The eighth Our History C3 March 08, 2025 0954 hours INDICATIONS: Flank pain beginning 5 days ago FINDINGS: No definite renal or ureteral calculi Nonobstructive bowel gas pattern IMPRESSION: No definite renal or ureteral calculi
== END | disposition home or self-care (01) ==
PROVIDERS: PCP Family Medicine; Referring Provider Surgery; Visit Provider Surgery
DX: N20.1 Calculus of ureter (principal)
CPT/HCPCS: 74018

== ENCOUNTER → 2025-05-10 | Outpatient (CLI) | payer MEDICAID, SELFPAY ==
--- NOTE | 2025-05-10 16:00 | XR_ITS ---
Examination: CT abdomen and pelvis without contrast. Coronal 3-D reconstructions. Sagittal 2-D reconstructions. Date and time of exam:May 10, 2025 1600 hours INDICATIONS: Left upper abdominal pain beginning July 2024, history kidney stones COMPARISON: 07/17/2024 CTDI: vol (mGy): 6.82 DLP: (mGycm): 396 Technique: Axial images of the abdomen have been obtained, 3 mm slice thickness Intravenous contrast material has not been administered. Low dose protocols were performed. One or more of the following dose reduction techniques were used; automated exposure control, adjustment of the mA and/or KV according to patient size, use of iterative reconstruction technique. Findings: No focal liver or splenic lesions Absent gallbladder No pancreatic or adrenal mass 1 mm lower pole right renal calculus No hydronephrosis or ureteral calculi Normal appendix Colonic diverticulosis, no diverticulitis No bladder mass or bladder calculi No prostatomegaly IMPRESSION: 1 mm lower pole nonobstructing right renal calculus No hydronephrosis or ureteral calculi
== END | disposition home or self-care (01) ==
LOC: CCTX 15:50
PROVIDERS: Referring Provider Physician Assistant; Visit Provider Physician Assistant
DX: N20.9 Urinary calculus, unspecified (principal)
CPT/HCPCS: 74176